=== PATIENT | female | born 1980 | race Caucasian/White ===

== ENCOUNTER 2022-05-26 08:54 | Outpatient (CLI) | payer OTHER, SELFPAY ==
--- NOTE | 2022-05-26 09:15 | CRLHL7_ITS ---
For Patients: As a result of the Cures Act, medical imaging exams and procedure reports are released immediately into your electronic medical record. You may view this report before your referring provider. If you have questions, please contact your health care provider. BILATERAL SCREENING MAMMOGRAM WITH COMPUTER-AIDED DETECTION AND TOMOSYNTHESIS TECHNIQUE: CC and MLO views were obtained. These mammographic images have been obtained using full-field digital technique. These mammographic images were interpreted with the benefit of computer-aided detection. Breast tomosynthesis was used in this interpretation. COMPARISON FILM: 04/25/21, 01/19/20. FINDINGS: There are scattered areas of fibroglandular density. IMPRESSION: There is no radiographic evidence for malignancy. ASSESSMENT: BI-RADS Category 1: Negative RECOMMENDATION: Routine screening mammogram in 1 year. A lay language report of this examination will be provided to the patient. HORTENCIA REYES M.D. Diagnostic/Nuclear Medicine Radiologist [email or web address] Transcribed: 05/26/2022, 4:[address]/Dictated by: Hortencia Reyes MD @ 05/26/2022 10:52:00 AM (Electronically Signed)
== END 2022-05-26 08:55 | disposition home or self-care (01) ==
LOC: MAMMO 08:58
PROVIDERS: Visit Provider Obstetrics & Gynecology
DX: Z12.31 Encounter for screening mammogram for malignant neoplasm of breast (principal)
CPT/HCPCS: 77063; 77067

== ENCOUNTER 2023-06-07 09:57 | Outpatient (CLI) | payer OTHER, SELFPAY ==
--- NOTE | 2023-06-07 10:15 | CRLHL7_ITS ---
For Patients: As a result of the Cures Act, medical imaging exams and procedure reports are released immediately into your electronic medical record. You may view this report before your referring provider. If you have questions, please contact your health care provider. BILATERAL SCREENING MAMMOGRAM WITH COMPUTER-AIDED DETECTION AND TOMOSYNTHESIS TECHNIQUE: CC and MLO views were obtained. These mammographic images have been obtained using full-field digital technique. These mammographic images were interpreted with the benefit of computer-aided detection. Breast Tomosynthesis was used in this interpretation. COMPARISON FILM: 05/26/22, 04/25/21, 01/19/20. FINDINGS: There are scattered areas of fibroglandular density IMPRESSION: There is no radiographic evidence for malignancy. ASSESSMENT: BI-RADS Category 1: Negative RECOMMENDATION: Routine screening mammogram in 1 year. A lay language report of this examination will be provided to the patient. Kendell Gaston M.D. Diagnostic Radiologist [email or web address] Transcribed: 5:06 p.maty maki/Dictated by: Kendell Gaston MD @ 06/07/2023 12:53:00 PM (Electronically Signed)
== END 2023-06-07 09:58 | disposition home or self-care (01) ==
LOC: MAMMO 10:00
PROVIDERS: Visit Provider Obstetrics & Gynecology
DX: Z12.31 Encounter for screening mammogram for malignant neoplasm of breast (principal)
CPT/HCPCS: 77063; 77067

== ENCOUNTER 2023-09-07 08:34 | Outpatient (CLI) | payer OTHER, SELFPAY | END 2023-09-07 08:35 | disposition home or self-care (01) | PROVIDERS: Visit Provider Obstetrics & Gynecology | DX: Z01.419 Encounter for gynecological examination (general) (routine) without abnormal findings (principal); N84.1 Polyp of cervix uteri; E78.00 Pure hypercholesterolemia, unspecified; Z12.4 Encounter for screening for malignant neoplasm of cervix; Z13.6 Encounter for screening for cardiovascular disorders; Z13.1 Encounter for screening for diabetes mellitus | CPT/HCPCS: 80061; 82947 ==

== ENCOUNTER 2024-03-20 07:54 | Outpatient (CLI) | payer OTHER, SELFPAY ==
--- OUTSIDE RECORDS SUMMARY | 2024-03-23 06:01 | XMS_ITS | Clinical Summary ---
Author Organization [facility] Address [address] [place] [address] Care Team Providers Care Account Liaison Hospice Name Role Phone No Ref-Primary, Physician Primary Care Provider Allergies No known active allergies Medications No known medications Social History Tobacco Use Types Packs/Day Years Used Date Smoking Tobacco: Never Smokeless Tobacco: Never Tobacco Cessation:Counseling Given: No Comments No Sex and Gender Information Value Date Recorded Sex Assigned at Not on file Legal Sex Female 10:43 AM CDT Gender Identity Not on file Sexual Orientation Not on file Last Filed Vital Signs Vital Sign Reading Time Taken Comments Blood Pressure 136/75 12/19/2017 7:44 AM CDT Pulse 88 12/19/2017 7:44 AM CDT Temperature - - Respiratory Rate - - Oxygen Saturation 97% 12/19/2017 7:44 AM CDT Inhaled Oxygen Concentration - - Weight - - Height - - Body Mass Index - - Plan of Treatment Not on file [place] [address] Care Teams Account Liaison Hospice Relationship Specialty Start Date End Date No Ref-Primary, Physician PCP - General 07/13/17
--- OUTSIDE RECORDS SUMMARY | 2024-03-23 06:01 | XMS_ITS | Referral Summary ---
Author Organization [facility] Address [address] [place] [id number] Care Team Providers Care Press Assistant Name Role Phone No Ref-Primary, Physician Primary [...] Treatment Not on file Insurance [employer] Care Teams Press Assistant Relationship Specialty Start Date End Date No Ref-Primary, Physician PCP - General 07/13/17
--- OUTSIDE RECORDS SUMMARY | 2024-03-23 06:01 | XMS_ITS | Clinical Summary ---
Author Organization [facility] Address [place], [place] [address] Care Team Providers Care [employer] Assembler Name Role Phone Listed, Not Primary Care Provider Unavailabl e Allergies No known active allergies Medications Medication Sig Dispensed Refills Start Date End Date Status atropine (ISOPTO ATROPINE) 1 % ophthalmic solutionIndications: Corneal ulcer, unspecified Place 1 Drop into both eyes 2 times daily. 5 mL 11/09/2014 Active prednisoLONE acetate 1% ophthalmic (ECONOPRED PLUS, PRED FORTE, OMNIPRED) suspensionIndication s:Corneal ulcer, unspecified Place 1 Drop into both eyes 4 times daily. SHAKE WELL. 5 mL 11/09/2014 Active ceFAZolin 50 mg/mL ophthalmic solution(JANICE AMB MIXTURE)Indications: Corneal ulcer, unspecified Place 1 drop in each eye every hour. Refrigerate. Expires: 10 mL 11/13/2014 Active ceFAZolin 50 mg/mL ophthalmic solution(JANICE AMB MIXTURE) Place 1 drop in both eyes every hour. Refrigerate expires: 10 mL 2 11/16/2014 Active Active Problems Problem Noted Date Diagnosed Date Corneal ulcer, unspecified 11/07/2014 Social History Tobacco Use Types Packs/Day Years Used Date Smoking Tobacco: Never Alcohol Use Standard Drinks/Week Comments Yes 0 (1 standard drink = 0.6 oz pur e alcohol) 1=2 times per month Sex and Gender Information Value Date Recorded Sex Assigned at Not on file Gender Identity Not on file Sexual Orientation Not on file Obstetrics History Last Filed Vital Signs Vital Sign Reading Time Taken Comments Blood Pressure 123/68 11/09/2014 5:34 AM CDT Pulse 68 11/09/2014 5:34 AM CDT Temperature 36.5 C (97.7 F) 11/09/2014 5:34 AM CDT Respiratory Rate 16 11/09/2014 5:34 AM CDT Oxygen Saturation 98% 11/08/2014 1:00 PM CDT Inhaled Oxygen Concentration - - Weight 79.4 kg (175 lb) 11/07/2014 6:55 PM CDT Height 170.2 cm (5' 7) 11/07/2014 6:55 PM CDT Body Mass Index 27.41 11/07/2014 6:55 PM CDT Plan of Treatment Not on file Advance Directives * Full Code (Latest Code Status on File) Date Activated Date Inactivated Comments 11/07/2014 7:18 PM 11/09/2014 3:29 PM Care Teams [employer] Assembler Relationship Specialty Start Date End Date Listed, [place] [address] PCP - General 11/09/14
== END 2024-03-20 07:55 | disposition home or self-care (01) ==
LOC: NFLDREF 03-23 06:00
PROVIDERS: Visit Provider Family Medicine
DX: E78.00 Pure hypercholesterolemia, unspecified (principal)
CPT/HCPCS: 80061; 80076

== ENCOUNTER 2024-08-06 08:25 | Outpatient (CLI) | payer OTHER, SELFPAY ==
--- NOTE | 2024-08-06 08:45 | CRLHL7_ITS ---
For Patients: As a result of the Century Cures Act, medical imaging exams and procedure reports are released immediately into your electronic medical record. You may view this report before your referring provider. If you have questions, please contact your health care provider. CLINICAL HISTORY: LEFT breast pain. COMPARISON: 06/07/23, 05/26/22, 04/25/21 TECHNIQUE: Digital BILATERAL mammogram in 4 projections with computer-aided detection. Tomosynthesis was used in this interpretation. Real-time ultrasound imaging of LEFT breast with imaging documentation. BREAST COMPOSITION: The breasts are heterogeneously dense, which may obscure small masses. FINDINGS: 3D cc/MLO bilateral mammogram images submitted. No suspicious mass or architectural distortion. No suspicious calcifications or adenopathy. Targeted left breast ultrasound performed at 1 o`clock 8 cm from the nipple. Normal fibroglandular tissues. No fibrocystic change or mass. IMPRESSION: No suspicious findings. No evidence of malignancy. RECOMMENDATIONS: Routine screening mammography. A lay language report of this examination will be provided to the patient. BI-RADS Category 1. Negative. Dictated by Kendell Gaston MD @ 08/06/2024 10:02:10 AM Dictated by: Kendell Gaston MD @ 08/06/2024 10:02:18 (Electronically Signed)
--- NOTE | 2024-08-06 09:15 | CRLHL7_ITS ---
For Patients: As a result of the Cures Act, medical imaging exams and procedure reports are released immediately into your electronic medical record. You may view this report before your referring provider. If you have questions, please contact your health care provider. Please see diagnostic mammogram report same date. Dictated by Kendell Gaston MD @ 08/06/2024 10:03:21 AM Dictated by: Kendell Gaston MD @ 08/06/2024 10:03:22 (Electronically Signed)
== END 2024-08-06 08:26 | disposition home or self-care (01) ==
LOC: MAMMO 08:26
PROVIDERS: Visit Provider Obstetrics & Gynecology
DX: N63.20 Unspecified lump in the left breast, unspecified quadrant (principal); N64.4 Mastodynia
CPT/HCPCS: 76642; 77066; G0279

== ENCOUNTER 2024-10-09 08:51 | Outpatient (CLI) | payer OTHER, SELFPAY | END 2024-10-09 08:52 | disposition home or self-care (01) | PROVIDERS: Visit Provider Obstetrics & Gynecology | DX: N91.5 Oligomenorrhea, unspecified (principal); R61 Generalized hyperhidrosis; G25.81 Restless legs syndrome | CPT/HCPCS: 82728; 83001; 84146; 84270; 84402; 84403; 84443 ==